=== PATIENT | male | born 1995 | race Asian ===

== ENCOUNTER 2016-11-22 12:47 | Emergency (ER) | payer OTHER ==
[~2016-11-22] VITALS: Ht 172.7 cm; Wt 90.7 kg
[2016-11-22 12:50] VITALS: BP 146/95
--- NOTE | 2016-11-22 13:35 | RAD ---
Chest, 2 views, 11/22/2016: History: Chest pain The heart size and pulmonary vascularity are normal. No pulmonary infiltrates are seen. There is no evidence of pleural fluid. IMPRESSION: No acute cardiopulmonary abnormality is detected.
--- NOTE | 2016-11-22 13:42 | PHYS DOC ---
Past Medical History Past Medical History: No Pertinent History Past Surgical History: Tonsillectomy Alcohol Use: Occasionally Drug Use: None Adult General Chief Complaint Chief Complaint: CHEST WALL PAIN [facility] HPI Patient is a 21 year old male who presents emergency room with a complaint of upper chest and shoulder pain is been progressive in nature for the past 3 years. 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 He denies any shortness of breath, chest pain, palpitations, orthopnea or PND. He denies any history of cardiopulmonary disease. It is not clear why patient chose today to come to the emergency department. He simply states that he started hurting. Review of Systems Review of Systems Constitutional: Denies fever or chills [] Eyes: Denies change in visual acuity, redness, or eye pain [] HENT: Denies nasal congestion or sore throat [] Respiratory: Denies cough or shortness of breath [] Cardiovascular: No additional information not addressed in HPI [] GI: Denies abdominal pain, nausea, vomiting, bloody stools or diarrhea [] : Denies dysuria or hematuria [] Musculoskeletal: Denies back pain or joint pain [] Integument: Denies rash or skin lesions [] Neurologic: Denies headache, focal weakness or sensory changes [] Endocrine: Denies polyuria or polydipsia [] Allergies Allergies Allergies Coded Allergies Type Severity Reaction Last Updated Verified Penicillins Allergy Intermediate RASH, ITCHING 08/20/16 Yes Physical Exam Physical Exam Constitutional: Well developed, well nourished, no acute distress, non-toxic appearance. Patient is very pleasant and cooperative. HENT: Normocephalic, atraumatic, bilateral external ears normal, oropharynx moist, no oral exudates, nose normal. [] Eyes: PERRLA, EOMI, conjunctiva normal, no discharge. [] Neck: Normal range of motion, no tenderness, supple, no stridor. [] Cardiovascular:Heart rate regular rhythm, no murmur [] Lungs & Thorax: Patient's chest is normal in appearance. There is no evidence of respiratory distress or respiratory fatigue. His no posturing or sensory muscle use. Lungs are clear to auscultation bilaterally. Patient does have tenderness to palpation to both upper lateral pectoral muscles without any palpable defect, deformity or spasm. He also has some tenderness to bilateral anterior deltoid regions. Again without deformity. He demonstrates full active range of motion to both upper extremities without derangement or crepitation. Abdomen: Bowel sounds normal, soft, no tenderness, no masses, no pulsatile masses. [] Skin: Warm, dry, no erythema, no rash. [] Back: No tenderness, no CVA tenderness. [] Extremities: No tenderness, no cyanosis, no clubbing, ROM intact, no edema. [] Neurologic: Alert and oriented X 3, normal motor function, normal sensory function, no focal deficits noted. [] Psychologic: Affect normal, judgement normal, mood normal. [] Current Patient Data Vital Signs Vital Signs Date Time Temp Pulse Resp B/P Pulse Ox O2 Delivery O2 Flow Rate FiO2 11/22/16 12:50 97.5 83 18 146/95 98 Room Air 97.5 EKG EKG [] Radiology/Procedures Radiology/Procedures [facility] [address] [place] [address] IMAGING REPORT Signed PATIENT: SHAUNA BREWSTER ACCOUNT: [id number] : 1995 LOCATION: ER AGE: 21 SEX: M EXAM STATUS: REG ER ORD. PHYSICIAN: TIM GUZMAN REASON: bilateral upper chest wall pain PROCEDURE: CHEST PA & LATERAL Chest, 2 views, 11/22/2016: History: Chest pain The heart size and pulmonary vascularity are normal. No pulmonary infiltrates are seen. There is no evidence of pleural fluid. IMPRESSION: No acute cardiopulmonary abnormality is detected. DICTATED and SIGNED BY: GIOVANNA AGUERO MD DATE: 11/22/16 1332 CC: TIM GUZMAN; NO PCP ~ Course & Med Decision Making Course & Med Decision Making Pertinent Labs and Imaging studies reviewed. (See chart for details) [] Dragon Disclaimer Dragon Disclaimer This electronic medical record was generated, in whole or in part, using a voice recognition dictation system. Departure Departure Impression: Primary Impression: Musculoskeletal pain Disposition: 01 HOME, SELF-CARE Condition: GOOD Referrals: NO PCP (PCP) Patient Instructions: Musculoskeletal Pain Additional Instructions: 1. Your chest x-ray here today is normal. 2. You strained the muscles in your chest and shoulders with the heavy lifting that you do at work. 3. This is normal. 4. You can take an [id number] anti-inflammatory such as naproxen or ibuprofen. Just be sure to take the medication with food or milk. Be sure that she drink 10-12, 10 ounce glasses of water a day. 5. A pamphlet is been provided to you for assistance in finding a primary care doctor to address your medical concerns. Please call to schedule an appointment with a new primary care doctor within the next 7-10 days. Scripts No Active Prescriptions or Reported Meds TIM GUZMAN Nov 22, 2016 13:42
== END 2016-11-22 13:58 | disposition home or self-care (01) ==
LOC: ER 12:47
DX: M79.1 Myalgia (principal); Z88.0 Allergy status to penicillin
CPT/HCPCS: 71020; 99284